=== PATIENT | male | born 1950 | race Caucasian/White ===

== ENCOUNTER 2023-08-31 07:43 | Emergency (ER) | payer SELFPAY ==
[2023-08-31] MEDS ORDERED: Mineral Oil ENEMA ONE (08:54)
[2023-08-31] MEDS ORDERED: Fleet Saline Enema 133 ML BOT PR SCH (09:15)
[2023-08-31] MEDS ORDERED: Ibuprofen 200 MG TAB ONE (09:54)
== END 2023-08-31 10:28 | disposition home or self-care (01) ==
LOC: CSHERS 07:43
DX: K59.00 Constipation, unspecified (principal)
CPT/HCPCS: 93005; 93010; 99283